=== PATIENT | male | born 1945 | race Caucasian/White ===

== ENCOUNTER 2017-12-01 07:43 | Day surgery (SDC) | payer MEDICARE ==
[~2017-12-01] VITALS: Ht 172.7 cm; Wt 61.1 kg
[~2017-12-01 07:43] MED LIST: AMLO10TA PO; ASPI81TA52 PO; ATEN-169 PO; ATOR10TA87 PO; BENZ200C53 PO; DOCU-28 PO; HYDR-3965 PO; IBUP-1984 PO; LISI-600 PO; LORA1TAB PO; OLAN10TA19 PO; OLAN20TA16 PO; RISP3TAB3 PO
[2017-12-01 08:09] VITALS: BP 108/61
[2017-12-01] MEDS ORDERED: normal saline 1000ml 1,000 ML IV PRN (08:10)
[2017-12-01] MEDS ORDERED: LIDOcaine 1%/PF 5ML 10 MG/ML VIAL ONE (08:59)
[2017-12-01] MEDS ORDERED: METO-467 PO (09:18)
[2017-12-01] MEDS ORDERED: ASPI-1264 PO (09:18)
[2017-12-01] MEDS ORDERED: MULT-38 PO (09:18)
[2017-12-01] MEDS ORDERED: ALLO100T PO (09:18)
[2017-12-01] MEDS ORDERED: ATOR40TA PO (09:18)
[2017-12-01] MEDS ORDERED: SENN-161 PO (09:19)
[2017-12-01] MEDS ORDERED: OLAN20TA3 PO (09:19)
[2017-12-01] MEDS ORDERED: FAMO-128 PO (09:19)
[2017-12-01] MEDS ORDERED: OLAN5TAB5 PO (09:19)
[2017-12-01 09:27] LABS: BASOPHILS % (AUTO) 0.3 % (0-1); EOSINOPHILS # (AUTO) 0.1 X10'3 (0-0.9); EOSINOPHILS % (AUTO) 1.8 % (0-6); HEMATOCRIT 33.1 % (42.0-52.0); HEMOGLOBIN 11.2 g/dl (14.0-17.9); LYMPHOCYTES # (AUTO) 2.6 X10'3 (1.1-4.8); LYMPHOCYTES % (AUTO) 33.4 % (21-51); MEAN CORPUSCULAR HEMOGLOBIN 30.4 PG (27.0-31.0); MEAN CORPUSCULAR HGB CONC 33.7 % (33.0-36.5); MEAN CORPUSCULAR VOLUME 90.4 FL (78-98); MEAN PLATELET VOLUME 7.8 FL (7.4-10.4); MONOCYTES # (AUTO) 0.7 X10'3 (0-0.9); MONOCYTES % (AUTO) 9.5 % (2-12); NEUTROPHILS # (AUTO) 4.3 X10'3 (1.8-7.7); PLATELET COUNT 234 X10'3 (140-440); RED BLOOD COUNT 3.67 X10'6 (4.70-6.10); RED CELL DISTRIBUTION WIDTH 15.9 % (11.5-14.5); WHITE BLOOD COUNT 7.8 X10'3 (4.5-11.0)
[2017-12-01 09:37] LABS: ALBUMIN 3.2 G/DL (3.4-5.0); ANION GAP 8 (8-16); BLOOD UREA NITROGEN 8 MG/DL (7-18); BUN/CREATININE RATIO 11.1 (5.4-32.0); CHLORIDE 102 MMOL/L (99-107); CREATININE 0.72 MG/DL (0.60-1.10); GLUCOSE 96 MG/DL (70-104); POTASSIUM 4.5 MMOL/L (3.5-5.1); SODIUM 138 MMOL/L (135-145); TOTAL CARBON DIOXIDE 28.2 MMOL/L (24-32); eGFR > 90 ML/MIN
[2017-12-01] MEDS ORDERED: midazolam 2 mg/2 ml injection ONE (09:48)
[2017-12-01] MEDS ORDERED: fentaNYL/PF 50MCG/1 ML 2ML syringe ONE (09:49)
[2017-12-01] MEDS ORDERED: heparin sodium, porcine/PF 100unit/ml 5ML syringe ONE (09:55)
[2017-12-01 11:00] VITALS: BP 107/55
[2017-12-01 11:15] VITALS: BP 147/69
[2017-12-01 11:30] VITALS: BP 120/58
[2017-12-01 11:45] VITALS: BP 108/60
[2017-12-01 12:00] VITALS: BP 110/62
== END 2017-12-01 12:05 ==
LOC: SSTAY O 07:43
PROVIDERS: ATTEND Radiology Diagnostic Radiology
DX: C83.31 Diffuse large B-cell lymphoma, lymph nodes of head, face, and neck (principal); E78.5 Hyperlipidemia, unspecified; I10 Essential (primary) hypertension; F41.8 Other specified anxiety disorders; F25.8 Other schizoaffective disorders; F10.21 Alcohol dependence, in remission; Z86.73 Personal history of transient ischemic attack (TIA), and cerebral infarction without residual deficits; Z90.49 Acquired absence of other specified parts of digestive tract; Z79.891 Long term (current) use of opiate analgesic; Z79.82 Long term (current) use of aspirin; Z79.1 Long term (current) use of non-steroidal anti-inflammatories (NSAID); Z86.69 Personal history of other diseases of the nervous system and sense organs; Z86.74 Personal history of sudden cardiac arrest; Z87.891 Personal history of nicotine dependence; Z86.14 Personal history of Methicillin resistant Staphylococcus aureus infection; Z85.828 Personal history of other malignant neoplasm of skin; Z98.890 Other specified postprocedural states; Z79.899 Other long term (current) drug therapy
CPT/HCPCS: 36415; 36561; 76937; 77001; 80048; 85025; 99152; 99153; A6219; C1788; C1894; J1642; J2001; J2250; J3010; J7030; A4620

== ENCOUNTER 2017-12-26 08:04 | Day surgery (SDC) | payer MEDICARE ==
[2017-12-26] VITALS (20 sets, daily range): BP systolic 111–184; BP diastolic 58–99
[~2017-12-26] VITALS: Ht 172.7 cm; Wt 72.7 kg
[~2017-12-26 08:04] MED LIST changes: +ALLO100T PO; -AMLO10TA PO; +ASPI-1264 PO; -ASPI81TA52 PO; -ATEN-169 PO; -ATOR10TA87 PO; +ATOR40TA PO; -BENZ200C53 PO; -DOCU-28 PO; +FAMO-128 PO; -IBUP-1984 PO; +METO-467 PO; +MULT-38 PO; -OLAN10TA19 PO; -OLAN20TA16 PO; +OLAN20TA3 PO; +OLAN5TAB5 PO; -RISP3TAB3 PO; +SENN-161 PO
[2017-12-26] MEDS ORDERED: normal saline 1000ml 1,000 ML IV SCH (08:40)
[2017-12-26] MEDS ORDERED: sodium chloride 0.45% 1,000 ML IV SCH (08:41)
[2017-12-26 09:16] LABS: BASOPHILS % (AUTO) 0.3 % (0-1); EOSINOPHILS # (AUTO) 0.2 X10'3 (0-0.9); EOSINOPHILS % (AUTO) 2.2 % (0-6); LYMPHOCYTES # (AUTO) 3.3 X10'3 (1.1-4.8); LYMPHOCYTES % (AUTO) 33.6 % (21-51); MEAN CORPUSCULAR HEMOGLOBIN 30.3 PG (27.0-31.0); MEAN CORPUSCULAR HGB CONC 33.1 % (33.0-36.5); MEAN CORPUSCULAR VOLUME 91.5 FL (78-98); MEAN PLATELET VOLUME 7.6 FL (7.4-10.4); MONOCYTES # (AUTO) 1.1 X10'3 (0-0.9); MONOCYTES % (AUTO) 11.1 % (2-12); NEUTROPHILS # (AUTO) 5.3 X10'3 (1.8-7.7); NEUTROPHILS % (AUTO) 52.8 % (42-75); PRE OP HEMATOCRIT 37.2 % (42.0-52.0); PRE OP HEMOGLOBIN 12.3 g/dL (14.0-17.9); PRE OP PLATELET COUNT 323 X10'3 (140-440); RED BLOOD COUNT 4.06 X10'6 (4.70-6.10); RED CELL DISTRIBUTION WIDTH 16.5 % (11.5-14.5)
[2017-12-26] MEDS ORDERED: HYDR-4353 PO (09:19)
[2017-12-26] MEDS ORDERED: LIDO5CRE2 TP (09:19)
[2017-12-26] MEDS ORDERED: ONDA8TAB12 PO (09:19)
[2017-12-26 09:24] LABS: ALBUMIN 4.1 G/DL (3.4-5.0); ANION GAP 10 (8-16); BLOOD UREA NITROGEN 12 MG/DL (7-18); CALCIUM 9.9 MG/DL (8.5-10.1); CHLORIDE 98 MMOL/L (99-107); CREATININE 0.92 MG/DL (0.60-1.10); GLUCOSE 109 MG/DL (70-104); POTASSIUM 4.5 MMOL/L (3.5-5.1); SODIUM 135 MMOL/L (135-145); TOTAL CARBON DIOXIDE 27.5 MMOL/L (24-32); eGFR 81 ML/MIN
[2017-12-26 09:36] LABS: PROTHROMBIN TIME 10.3 SECONDS (9.0-12.0)
[2017-12-26] MEDS ORDERED: fentaNYL/PF 50MCG/1 ML 2ML syringe IV PRN (10:05)
[2017-12-26] MEDS ORDERED: fentaNYL/PF 50MCG/1 ML 2ML syringe ONE (10:17)
== END 2017-12-26 15:05 | disposition home or self-care (01) ==
LOC: SSTAY O 08:04
PROVIDERS: ATTEND Radiology Diagnostic Radiology
DX: C83.32 Diffuse large B-cell lymphoma, intrathoracic lymph nodes (principal); E78.5 Hyperlipidemia, unspecified; I10 Essential (primary) hypertension; F41.8 Other specified anxiety disorders; F25.8 Other schizoaffective disorders; F10.21 Alcohol dependence, in remission; Z85.828 Personal history of other malignant neoplasm of skin; Z86.74 Personal history of sudden cardiac arrest; Z87.891 Personal history of nicotine dependence; Z86.73 Personal history of transient ischemic attack (TIA), and cerebral infarction without residual deficits; Z90.49 Acquired absence of other specified parts of digestive tract; Z86.14 Personal history of Methicillin resistant Staphylococcus aureus infection; Z79.1 Long term (current) use of non-steroidal anti-inflammatories (NSAID); Z79.891 Long term (current) use of opiate analgesic; Z79.82 Long term (current) use of aspirin; Z98.890 Other specified postprocedural states; Z79.899 Other long term (current) drug therapy
CPT/HCPCS: 32405; 36415; 71045; 77012; 80048; 85025; 85610; J3010; 88305; J7030

== ENCOUNTER 2019-07-30 11:25 | Day surgery (SDC) | payer MEDICARE, MEDICAID ==
[~2019-07-30] VITALS: Ht 172.7 cm; Wt 77.3 kg
[~2019-07-30 11:25] MED LIST changes: -HYDR-3965 PO; +HYDR-4353 PO; +LIDO5CRE2 TP; +ONDA8TAB65 PO; -SENN-161 PO; +SENN-263 PO
[2019-07-30] MEDS ORDERED: OLAN5TAB3 PO (12:06)
[2019-07-30] MEDS ORDERED: BACL10TA PO (12:08)
[2019-07-30 12:15] VITALS: BP 168/76
[2019-07-30 14:20] VITALS: BP 195/82
[2019-07-30 14:30] VITALS: BP 171/87
[2019-07-30 14:45] VITALS: BP 166/79
[2019-07-30 15:00] VITALS: BP 175/85
== END 2019-07-30 15:30 | disposition home or self-care (01) ==
LOC: SSTAY O 11:25
PROVIDERS: ATTEND Radiology Diagnostic Radiology
DX: Z45.2 Encounter for adjustment and management of vascular access device (principal); Z79.899 Other long term (current) drug therapy; Z79.82 Long term (current) use of aspirin; Z85.72 Personal history of non-Hodgkin lymphomas
CPT/HCPCS: 36590